=== PATIENT | female | born 1980 | race Caucasian/White ===

== ENCOUNTER 2017-09-27 16:45 | Inpatient (IN) | payer OTHER ==
[2017-09-27] MEDS ORDERED: AMPICILLIN - 2 GM in SODIUM CHLORIDE 100 ML IVPB ONE (17:27)
[2017-09-27] MEDS ORDERED: DEXTROSE 5%-LACTATED RINGERS 1,000 ML IV SCH (17:30)
[2017-09-27] MEDS ORDERED: SODIUM CHLORIDE 100 ML IVPB ONE (17:31)
[2017-09-27] MEDS ORDERED: BUTORPHANOL TARTRATE 1 MG/ML VIAL IVPUSH ONE (17:31)
[2017-09-27] MEDS ORDERED: AMPICILLIN SODIUM 2 GM VIAL ONE (17:31)
[2017-09-27] MEDS ORDERED: PROMETHAZINE HCL 25 MG/1 ML VIAL IVPUSH ONE (17:31)
[2017-09-27 17:49] VITALS: BMI 32.5
--- NOTE | 2017-09-27 17:54 | HP ---
Past Medical History - Primary Care Physician PCP:: Jacob Muir - Admission Chief Complaint: 38 weeks, labor History Source: Patient Limitations to Obtaining History: Language Barrier - Past Surgical History Hx Myomectomy: No Hx Transabdominal Cerclage: No - Smoking History Smoking history: Never smoked Have you smoked in the past 12 months: No - Alcohol/Substance Use Hx Alcohol Use: No - Social History Usual Living Arrangement: Yes: With Spouse History of Recent Travel: No Home Medications - Allergies Allergies/Adverse Reactions: Allergies Allergy/AdvReac Type Severity Reaction Status Date / Time No Known Drug Allergies Allergy Verified 08/30/12 15:47 - Home Medications Home Medications: Ambulatory Orders Pnv No.95/Ferrous Fum/Folic AC [ Tablet] 1 each PO 08/30/12 Acetaminophen [Tylenol .Regular Strength -] 325 mg PO Q4H PRN #1 tablet Ibuprofen [Motrin -] 200 mg PO Q4H PRN #0 tablet 08/31/12 Vitamins (Sjr) - 1 tab PO DAILY #1 tablet 08/31/12 Review of Systems - Review of Systems Constitutional: reports: No Symptoms Eyes: reports: No Symptoms HENT: reports: No Symptoms Neck: reports: No Symptoms Cardiovascular: reports: No Symptoms Respiratory: reports: No Symptoms Gastrointestinal: reports: No Symptoms Genitourinary: reports: No Symptoms Breasts: reports: No Symptoms Reported Musculoskeletal: reports: No Symptoms Integumentary: reports: No Symptoms Neurological: reports: No Symptoms Endocrine: reports: No Symptoms Hematology/Lymphatic: reports: No Symptoms Psychiatric: reports: No Symptoms Physical Exam - Maternity Constitutional: Yes: Well Nourished, No Distress, Calm Eyes: Yes: WNL, Conjunctiva Clear, EOM Intact HENT: Yes: WNL, Atraumatic, Normocephalic Neck: Yes: WNL, Supple, Trachea Midline Cardiovascular: Yes: WNL, Regular Rate and Rhythm Breast(s): Yes: WNL - Abdominal Exam/OB Fundal Height: 38 Number of Fetuses: Single Presentation: Vertex Contractions: Yes Regularity: Irregular Intensity: Moderate Heart Rate Location: [facility] Category: I Accelerations: Uniform Decelerations: None - Vaginal Exam/OB Vaginal Bleediing: No Speculum Exam: No Dilatation (cm): 4 cm Effacement (%): 75 Amniotic Membrane Status: Bulging Presentation: Vertex/Position Station: -3 - Physical Exam Musculoskeletal: Yes: WNL Extremities: Yes: WNL Edema: LLE: Trace, RLE: Trace Deep Tendon Reflex Grade: Normal +2 Psychiatric: Yes: WNL Hemorrhage Risk Assessment - Risk Factors Medium Risk Factors: Yes: Multiple gestation Risk Score: 1 Risk Level: Medium Risk Problem List - Problems (1) with 38 completed weeks gestation Code(s): Z3A.38 - 38 WEEKS GESTATION OF (2) Labor established Code(s): [id number] - (3) Group B streptococcal carriage complicating Code(s): O99.820 - STREPTOCOCCUS B CARRIER STATE COMPLICATING Assessment/Plan admit, FHM, antibiotic prophylaxis, , pain management
[2017-09-27] MEDS ORDERED: OXYTOCIN 30 UNITS in 0.9% NS 30 UNIT/500 ML INFUS.BAG IVPB ONE (17:56)
[2017-09-27] MEDS ORDERED: OXYTOCIN 30 UNITS in 0.9% NS 30 UNIT/500 ML INFUS.BAG IVPB SCH (18:00)
[2017-09-27 19:03] LABS: BASO % 0.8 % (0-2.0); EOS % 0.2 % (0-4.5); HEMATOCRIT 35.7 % (32.4-45.2); HEMOGLOBIN 11.5 GM/dL (10.7-15.3); LYMPH % 16.5 % (8-40); MCH 27.2 pg (25.7-33.7); MCHC 32.3 g/dl (32.0-36.0); MEAN CELL VOLUME 84.1 fl (80-96); MEAN PLT VOLUME 11.7 fl (7.5-11.1); MONO % 6.3 % (3.8-10.2); NEUT % 76.2 % (42.8-82.8); PLATELET COUNT 220 K/MM3 (134-434); RBC 4.25 M/mm3 (3.60-5.2); RDW 15.5 % (11.6-15.6); WHITE BLOOD COUNT 8.8 K/mm3 (4.0-10.0)
[2017-09-27 19:16] LABS: INR 1.13 (0.82-1.09); PROTHROMBIN TIME (PATIENT) 12.8 SEC (9.7-13.0)
[2017-09-27 19:18] LABS: ACTIVATED PTT 28.6 SECONDS (25.2-36.5)
--- NOTE | 2017-09-27 19:52 | PN ---
Progress Note (short form) - Note Progress Note: cx5 cm 80 vx -2 mi, fhr cat 1 ,regular contraction, arom clear Problem List - Problems (1) with 38 completed weeks gestation Code(s): Z3A.38 - 38 WEEKS GESTATION OF (2) Labor established Code(s): [id number] - (3) Group B streptococcal carriage complicating Code(s): O99.820 - STREPTOCOCCUS B CARRIER STATE COMPLICATING
[2017-09-27 19:55] LABS: ANION GAP 13 (8-16); BLOOD UREA NITROGEN 9 mg/dL (7-18); CALCIUM 8.3 mg/dL (8.5-10.1); CHLORIDE 107 mmol/L (98-107); CO2 21 mmol/L (21-32); CREATININE 0.4 mg/dL (0.55-1.02); GLUCOSE,RANDOM 73 mg/dL (74-106); POTASSIUM 3.7 mmol/L (3.5-5.1); SODIUM 141 mmol/L (136-145)
[2017-09-27] MEDS ORDERED: BUTORPHANOL TARTRATE 1 MG/ML VIAL ONE ×2 (21:07)
[2017-09-27] MEDS ORDERED: AMPICILLIN SODIUM 1 GM VIAL ONE (21:07)
[2017-09-27] MEDS ORDERED: PROMETHAZINE HCL 25 MG/1 ML VIAL ONE (21:07)
[2017-09-27] MEDS ORDERED: BISACODYL 10 MG SUPP.RECT RC PRN (21:56)
[2017-09-27] MEDS ORDERED: METHYLERGONOVINE MALEATE 0.2 MG/1 ML AMP IM PRN (21:56)
[2017-09-27] MEDS ORDERED: BENZOCAINE 28 GM HEMORRHOIDAL OINTMENT TP PRN (21:56)
[2017-09-27] MEDS ORDERED: WITCH HAZEL 50% (TUCKS) 40 PAD/JAR PAD TP PRN (21:56)
[2017-09-27] MEDS ORDERED: BENZOCAINE 20% 57 GM BOTTLE TP PRN (21:56)
--- NOTE | 2017-09-27 21:56 | PN ---
Progress Note (short form) - Note Progress Note: 930 pm, cx full 100 vx 0 mr, fhr cat 2with small variables , she wants to push , expecting delivery soon Problem List - Problems (1) with 38 completed weeks gestation Code(s): Z3A.38 - 38 WEEKS GESTATION OF (2) Labor established Code(s): [id number] - (3) Group B streptococcal carriage complicating Code(s): O99.820 - STREPTOCOCCUS B CARRIER STATE COMPLICATING
[2017-09-27] MEDS ORDERED: AMPICILLIN - 1 GM in SODIUM CHLORIDE 100 ML IVPB SCH (22:00)
[2017-09-27] MEDS ORDERED: D5W-LR W/ 20 UNITS OXYTOCIN 1,000 ML IV SCH (22:00)
[2017-09-27] MEDS ORDERED: OXYTOCIN 20 UNITS in 0.9% NS 20 UNIT/1,000 ML INFUS.BAG IV SCH (22:00)
[2017-09-27] MEDS ORDERED: ACETAMINOPHEN 325 MG TABLET (FP) ONE (22:10)
[2017-09-27] MEDS: ACETAMINOPHEN 325 MG TABLET (FP) PO PRN (22:15)
[2017-09-27] MEDS: IBUPROFEN 600 MG TABLET (FP) PO PRN (22:15)
[2017-09-27 22:26] LABS: ARTERIAL BLOOD GAS BASE EXCESS -3.7 meq/l (-2-2); ARTERIAL BLOOD GAS pH 7.28 (7.35-7.45)
[2017-09-27 22:38] LABS: ARTERIAL BLD GAS O2 SATURATION 45.8 % (90-98.9); ARTERIAL BLOOD GAS PO2 23.6 mmHg (80-100)
[2017-09-27 22:41] LABS: VENOUS PH 7.34 (7.32-7.42)
[2017-09-28] MEDS: FERROUS SO4 325 MG TABLET (FP) PO SCH ×3 (00:15→22:08)
[2017-09-28] MEDS: ACETAMINOPHEN 325 MG TABLET (FP) PO PRN ×2 (06:23→22:12)
[2017-09-28] MEDS: IBUPROFEN 600 MG TABLET (FP) PO PRN ×2 (06:23→22:12)
--- NOTE | 2017-09-28 07:41 | PN ---
Progress Note (short form) - Note Progress Note: ppd 1 doing well, no c/o voids ok Last Vital Signs Temp Pulse Resp BP Pulse Ox 98.0 F 60 20 121/60 99 09/28/17 06:08 09/28/17 06:08 09/28/17 06:08 09/28/17 06:08 09/27/17 22:45 CBC, BMP 09/27/17 18:45 abdomen soft, non tender , no cva uterus firm, non tender lochia mild no calf tenderness plan ambulate cbc Problem List - Problems (1) with 38 completed weeks gestation Code(s): Z3A.38 - 38 WEEKS GESTATION OF (2) Labor established Code(s): [id number] - (3) Group B streptococcal carriage complicating Code(s): O99.820 - STREPTOCOCCUS B CARRIER STATE COMPLICATING
[2017-09-28 07:51] LABS: BASO % 0.5 % (0-2.0); EOS % 0.6 % (0-4.5); HEMATOCRIT 33.3 % (32.4-45.2); HEMOGLOBIN 10.7 GM/dL (10.7-15.3); LYMPH % 15.8 % (8-40); MCH 27.5 pg (25.7-33.7); MCHC 32.3 g/dl (32.0-36.0); MEAN CELL VOLUME 85.1 fl (80-96); MEAN PLT VOLUME 11.5 fl (7.5-11.1); MONO % 8.6 % (3.8-10.2); NEUT % 74.5 % (42.8-82.8); PLATELET COUNT 187 K/MM3 (134-434); RBC 3.91 M/mm3 (3.60-5.2); RDW 15.4 % (11.6-15.6); WHITE BLOOD COUNT 14.2 K/mm3 (4.0-10.0)
[2017-09-28] MEDS ORDERED: DIPHTH,PERTUSS(ACELL),TET 0.5 ML DISP.SYRIN IM ONE (10:00)
[2017-09-28] MEDS: PRENATAL VITAMINS W/ FOLIC ACID TABLET (FP) PO SCH (10:14)
[2017-09-28] MEDS ORDERED: SENNOSIDES/DOCUSATE COMBO (SENNA PLUS) TABLET (UD) PO PRN (22:00)
[2017-09-28 22:14] VITALS: PULSE 70
--- NOTE | 2017-09-29 08:10 | DS ---
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 Vital Signs: Vital Signs Temperature 98.2 F 09/28/17 22:13 Pulse Rate 70 09/28/17 22:13 Respiratory Rate 20 09/28/17 22:13 Blood Pressure 120/60 09/28/17 22:13 O2 Sat by Pulse Oximetry (%) 99 09/27/17 22:45 Constitutional: Yes: Well Nourished, No Distress, Calm Eyes: Yes: WNL, Conjunctiva Clear, EOM Intact HENT: Yes: WNL, Atraumatic, Normocephalic Neck: Yes: WNL, Supple, Trachea Midline Cardiovascular: Yes: WNL, Regular Rate and Rhythm Respiratory: Yes: WNL, Regular, CTA Bilaterally Gastrointestinal: Yes: WNL ...Rectal Exam: Yes: WNL Renal/: Yes: WNL ....Post : Yes: Uterus firm, Uterus non-tender, Slight lochia rubra Breast(s): Yes: WNL Musculoskeletal: Yes: WNL Extremities: Yes: WNL Integumentary: Yes: WNL Neurological: Yes: WNL, Alert, Oriented ...Motor Strength: WNL Psychiatric: Yes: WNL, Alert, Oriented Labs: CBC, BMP 09/28/17 06:30 09/27/17 18:45 Delivery - Delivery Vaginal Delivery: Spontaneous (no complication) Type of Anesthesia: None Episiotomy/Laceration: None EBL (cc): 300 Delivery, Single - Stages of Labor Date 1st Stage Initiatied: 09/27/17 Time 1st Stage Initiated: 20:30 Date 2nd Stage Initiated: 09/27/17 Time 2nd Stage Initiated: 21:30 Date of Delivery: 09/27/17 Time of Delivery: 21:40 Time Placenta Delivered: 21:45 Placenta: Yes: Spontaneous - Condition of Infant Technical Writing Lead/Mgr/Digital Developer Present: No Infant Gender: Male Weight: 7 lb 14 oz Total Hours ROM (Hrs/Mins): 2hr - 1 Minute Total Score: 9 5 Minutes Total Score: 9 - [place] Feeding Plan Initial Plan: Elected not to breastfeed exclusively throughout hospitalization Discharge Summary Reason For Visit: LABOR Current Active Problems Group B streptococcal carriage complicating (Acute) Labor established (Acute) with 38 completed weeks gestation (Acute) Procedures: Principal: Hospital Course: no complication Condition: Good - Instructions Diet, Activity, Other Instructions: regular diet, follow up [facility], if fever, pain, heavy vaginal bleeding to call MD Referrals: Jacob Muir MD [Staff Physician] - Disposition: HOME - Home Medications Comprehensive Discharge Medication List: Ambulatory Orders Vitamins (Sjr) - 1 tab PO DAILY #1 tablet 08/31/12 Ferrous Sulfate [Feosol] 325 mg PO DAILY 09/27/17
[2017-09-29] MEDS: FERROUS SO4 325 MG TABLET (FP) PO SCH (09:22)
[2017-09-29] MEDS: PRENATAL VITAMINS W/ FOLIC ACID TABLET (FP) PO SCH (09:22)
[2017-09-29] MEDS: IBUPROFEN 600 MG TABLET (FP) PO PRN (09:34)
[2017-09-29] MEDS: ACETAMINOPHEN 325 MG TABLET (FP) PO PRN (09:35)
[2017-09-29 10:27] VITALS: BP 119/62; TEMP 97.9
== END 2017-09-29 11:55 | disposition home or self-care (01) | DRG 560 ==
LOC: JLDR 16:45 → J3W 23:27
PROVIDERS: ADMIT Obstetrics & Gynecology; ATTEND Obstetrics & Gynecology
PROC: 10E0XZZ Delivery of Products of Conception, External Approach (ICD-10-PCS; principal; 2017-09-27)
DX: O99.824 Streptococcus B carrier state complicating childbirth (principal); Z3A.38 38 weeks gestation of pregnancy; Z37.0 Single live birth
CPT/HCPCS: 36415; 36600; 59409; 80048; 82803; 85025; 85610; 85730; 86593; 86850; 86900; 86901; 90715

== ENCOUNTER 2023-08-01 10:25 | Emergency (ER) | payer OTHER ==
[2023-08-01 10:51] VITALS: BP 114/71; PULSE 91; RESP 18; TEMP 98.8; BMI 34.9
[2023-08-01 12:36] LABS: BASO % 1.2 % (0-2.0); EOS % 0.9 % (0-4.5); HEMATOCRIT 38.6 % (32.4-45.2); LYMPH % 27.8 % (8-40); MCH 29.8 pg (25.7-33.7); MCHC 33.5 g/dl (32.0-36.0); MEAN CELL VOLUME 88.9 fl (80-96); MEAN PLT VOLUME 11.1 fl (7.5-11.1); NEUT % 63.1 % (42.8-82.8); PLATELET COUNT 242 10^3/uL (134-434); RBC 4.35 M/mm3 (3.60-5.2); WHITE BLOOD COUNT 7.3 K/mm3 (4.0-10.0)
[2023-08-01 12:45] LABS: INR 1.22 (0.83-1.09); PROTHROMBIN TIME (PATIENT) 13.7 SEC (9.7-13.0)
[2023-08-01 12:47] LABS: ACTIVATED PTT 35.1 SECONDS (25.2-36.5)
[2023-08-01 12:57] LABS: POTASSIUM 4.1 mmol/L (3.5-5.1)
[2023-08-01 13:05] LABS: CALCIUM 9.3 mg/dL (8.5-10.1)
[2023-08-01 13:06] LABS: BLOOD UREA NITROGEN 8.9 mg/dL (7-18)
[2023-08-01 13:07] LABS: CREATININE 0.6 mg/dL (0.55-1.3)
[2023-08-01 13:09] LABS: BILIRUBIN,TOTAL 0.5 mg/dL (0.2-1); TOT PROT 8.1 g/dl (6.4-8.2)
[2023-08-01 13:25] LABS: PH,URINE 6.5 (5.0-8.0); URINE APPEARANCE CLEAR; URINE BILIRUBIN NEGATIVE (NEGATIVE); URINE COLOR YELLOW; URINE GLUCOSE (UA) NEGATIVE (NEGATIVE); URINE KETONE NEGATIVE (NEGATIVE); URINE LEUK ESTERASE NEGATIVE (NEGATIVE); URINE NITRITE NEGATIVE (NEGATIVE); URINE PROTEIN NEGATIVE (NEGATIVE); URINE UROBILINOGEN 0.2 mg/dL (0.2-1.0)
== END 2023-08-01 13:57 | disposition home or self-care (01) ==
LOC: JER 10:25
DX: N92.1 Excessive and frequent menstruation with irregular cycle (principal)
CPT/HCPCS: 36415; 80053; 81003; 84703; 85025; 85610; 85730; 86850; 86900; 86901; 99283-25